=== PATIENT | male | born 1985 | race Caucasian/White ===

== ENCOUNTER 2017-08-06 11:45 | Emergency (ER) | payer OTHER ==
[~2017-08-06] VITALS: Ht 182.9 cm; Wt 77.9 kg
[~2017-08-06 11:45] MED LIST: NAPROSYN500 MG PO; NORCO 5/3251 TABLET PO; PEN-VEE K,VEET500 MG PO; PERCOCET 7.51 TABLET PO; ZOFRAN ODT4 MG PO
[2017-08-06 12:09] LABS: APPEARANCE CLEAR ((CLEAR)); BILIRUBIN NEGATIVE; BLOOD MODERATE; COLOR YELLOW ((YELLOW)); GLUCOSE (STRIP) NEGATIVE; KETONES NEGATIVE; LEUKOCYTES MODERATE; NITRITE NEGATIVE; PROTEIN (STRIP) NEGATIVE; SPECIFIC GRAVITY 1.012 (1.000-1.030); UROBILINOGEN 0.2 MG/DL (0.2-1.0)
[2017-08-06 12:16] LABS: BACTERIA RARE /HPF; EPITHELIAL CELLS NONE SEEN /HPF; MUCUS TRACE /LPF; RED BLOOD CELLS TNTC /HPF (0-5); UCUL ADDED? YES; WHITE BLOOD CELLS 15-20 /HPF (0-5)
[2017-08-06 13:11] LABS: HEMATOCRIT 40.8 % (38.0-50.0); HEMOGLOBIN 14.5 G/DL (12.5-16.6); MCH 31.5 PG (29.0-34.0); MCHC 35.5 G/DL (30.0-36.0); MCV 88.7 FL (86-99); PLATELET COUNT 263 K/uL (156-360)
[2017-08-06 13:19] LABS: CHLORIDE 109 mEq/L (99-109); POTASSIUM 4.3 mEq/L (3.7-5.4); SODIUM 141 mEq/L (136-147)
[2017-08-06 13:21] LABS: GLUCOSE 92 mg/dL (70-99)
[2017-08-06 13:24] LABS: CREATININE 1.4 mg/dL (0.6-1.3); GFR ESTIMATE (CALCULATED) > 59 mL/min/ (58.99-99999)
[2017-08-06 13:25] LABS: UREA NITROGEN (BUN) 15 mg/dL (9-23)
[2017-08-06] MEDS ORDERED: MOTRIN600 MG PO (14:47)
[2017-08-06] MEDS ORDERED: ZOFRAN ODT4 MG PO (14:47)
[2017-08-06] MEDS ORDERED: PERCOCET 5/31 TABLET PO (14:47)
[2017-08-06 14:54] VITALS: BP 139/94
== END 2017-08-06 15:08 | disposition home or self-care (01) ==
LOC: EME 11:45
DX: N20.1 Calculus of ureter (principal); R31.9 Hematuria, unspecified; Z87.442 Personal history of urinary calculi; F17.200 Nicotine dependence, unspecified, uncomplicated
CPT/HCPCS: 74176; 80048; 81003; 85027; 87086; 87186; 99281; 99284; J1885; J2270; J2405; J3010; J7030

== ENCOUNTER 2017-12-13 05:42 | Day surgery (SDC) | payer OTHER ==
[~2017-12-13] VITALS: Ht 182.9 cm; Wt 80.7 kg
[2017-12-13 00:34] VITALS: BP 140/85
[~2017-12-13 05:42] MED LIST changes: +FLOMAX0.4 MG PO; +MACRODANTIN50 M1 PO; +MOTRIN600 MG PO; +PERCOCET 5/31 TABLET PO
[2017-12-13 06:16] VITALS: BP 124/85
[2017-12-13] MEDS ORDERED: BACTRIM,SEPT1 TABLET PO (10:43)
[2017-12-13] MEDS ORDERED: DOCUSATE SODIU100 MG PO (10:43)
[2017-12-13] MEDS ORDERED: TAMSULOSIN HCL0.4 MG PO (10:43)
[2017-12-13] MEDS ORDERED: PHENAZOPYRIDIN100 MG PO (10:43)
[2017-12-13] MEDS ORDERED: HYDROMORPHONE HC2 MG PO (10:43)
[2017-12-13 12:15] VITALS: BP 135/76
[2017-12-13 13:45] LABS: HEMATOCRIT 42.1 % (38.0-50.0); HEMOGLOBIN 14.7 G/DL (12.5-16.6); MCH 31.7 PG (29.0-34.0); MCHC 34.9 G/DL (30.0-36.0); MCV 90.7 FL (86-99); PLATELET COUNT 254 K/uL (156-360); RBC DIS.WIDTH-SD 39.8 % (39-53); RED BLOOD COUNT 4.64 M/uL (4.00-5.50); WHITE BLOOD COUNT 15.8 K/uL (4.1-10.2)
[2017-12-13 14:03] LABS: CHLORIDE 105 MEQ/L (99-109); CREATININE 0.9 MG/DL (0.6-1.3); GFR ESTIMATE (CALCULATED) > 59 mL/min/ (58.99-99999); GLUCOSE 123 mg/dL (70-99); POTASSIUM 4.6 MEQ/L (3.7-5.4); SODIUM 139 MEQ/L (136-147); UREA NITROGEN (BUN) 13 mg/dL (9-23)
[2017-12-13 17:07] VITALS: BP 135/86
[2017-12-13 19:02] VITALS: BP 129/76
[2017-12-14 03:18] VITALS: BP 116/58
[2017-12-14 08:17] VITALS: BP 153/90
[2017-12-14] MEDS ORDERED: ROXICODONE5 MG PO (11:10)
[2017-12-14] MEDS ORDERED: DITROPAN5 MG PO (11:10)
[2017-12-14] MEDS ORDERED: ONDANSETRON ODT4 MG PO (11:10)
== END 2017-12-14 11:51 | disposition home or self-care (01) ==
LOC: SDC 05:42 → 2SOUTH 10:09 → ENRESERV 10:37 → SDC 11:26 → 2EAST 11:55 → SDC 14:33 → 2EAST 12-14 11:51
PROVIDERS: Urology
DX: N20.0 Calculus of kidney (principal); F17.200 Nicotine dependence, unspecified, uncomplicated
CPT/HCPCS: 74018; 80048; 82365 90; 85027; C1726; C1758; C1769; C2625; G0378; J0330; J0696; J1100; J1170; J1885; J2250; J2270; J2405; J2710; J3010; J7120; J7643; S0020

== ENCOUNTER 2017-12-22 21:46 | Emergency (ER) | payer OTHER ==
[~2017-12-22] VITALS: Ht 172.7 cm; Wt 76.1 kg
[~2017-12-22 21:46] MED LIST changes: +BACTRIM,SEPT1 TABLET PO; +DITROPAN5 MG PO; +DOCUSATE SODIU100 MG PO; +HYDROMORPHONE HC2 MG PO; +ONDANSETRON ODT4 MG PO; +PHENAZOPYRIDIN100 MG PO; +ROXICODONE5 MG PO; +TAMSULOSIN HCL0.4 MG PO
[2017-12-22 22:57] LABS: HEMATOCRIT 41.7 % (38.0-50.0); HEMOGLOBIN 14.7 G/DL (12.5-16.6); MCH 32.2 PG (29.0-34.0); MCHC 35.3 G/DL (30.0-36.0); MCV 91.4 FL (86-99); PLATELET COUNT 282 K/uL (156-360); RBC DIS.WIDTH-CV 11.9 % (11.8-14.6); RBC DIS.WIDTH-SD 39.7 % (39-53); RED BLOOD COUNT 4.56 M/uL (4.00-5.50)
[2017-12-22 23:07] LABS: ALBUMIN 4.5 g/dL (3.2-4.8); CHLORIDE 107 mEq/L (99-109)
[2017-12-22 23:08] LABS: POTASSIUM 4.1 mEq/L (3.7-5.4); SODIUM 143 mEq/L (136-147)
[2017-12-22 23:10] LABS: GLUCOSE 119 mg/dL (70-99); TOTAL PROTEIN 7.2 g/dL (6.4-8.3)
[2017-12-22 23:12] LABS: TOTAL BILIRUBIN 0.3 mg/dL (0.0-1.0)
[2017-12-22 23:13] LABS: ALKALINE PHOSPHATASE 86 IU/L (3-129); CREATININE 1.2 mg/dL (0.6-1.3); GFR ESTIMATE (CALCULATED) > 59 mL/min/ (58.99-99999)
[2017-12-22 23:15] LABS: AST (GOT) 18 IU/L (2-34); UREA NITROGEN (BUN) 13 mg/dL (9-23)
[2017-12-22 23:16] LABS: ALT (GPT) 23 IU/L (3-49)
[2017-12-23] MEDS ORDERED: PERCOCET 5/31 TABLET PO (01:05)
[2017-12-23] MEDS ORDERED: MOTRIN600 MG PO (01:05)
[2017-12-23 01:59] LABS: APPEARANCE SL.HAZY ((CLEAR)); BILIRUBIN NEGATIVE; BLOOD LARGE; COLOR AMBER ((YELLOW)); GLUCOSE (STRIP) NEGATIVE; KETONES NEGATIVE; LEUKOCYTES SMALL; NITRITE POSITIVE; PROTEIN (STRIP) 100; SPECIFIC GRAVITY 1.023 (1.000-1.030)
[2017-12-23] MEDS ORDERED: LEVAQUIN750 MG PO (02:12)
[2017-12-23 02:14] LABS: BACTERIA NONE SEEN /HPF; CALCIUM OXALATE CRYSTALS 4+ /HPF; EPITHELIAL CELLS NONE SEEN /HPF; MUCUS TRACE /LPF; RED BLOOD CELLS TNTC /HPF (0-5); UCUL ADDED? YES; WHITE BLOOD CELLS TNTC /HPF (0-5)
[2017-12-23 02:29] VITALS: BP 132/81
== END 2017-12-23 02:31 | disposition home or self-care (01) ==
LOC: EME 21:46
PROVIDERS: Nurse Practitioner Family
DX: N13.2 Hydronephrosis with renal and ureteral calculous obstruction (principal); N39.0 Urinary tract infection, site not specified; Z98.890 Other specified postprocedural states; Z87.442 Personal history of urinary calculi; F17.200 Nicotine dependence, unspecified, uncomplicated
CPT/HCPCS: 74176; 80053; 81003; 85027; 87086; 99281; 99285; J1885; J2405; J3010; J7030

== ENCOUNTER 2018-01-13 01:48 | Observation (INO) | payer OTHER ==
[~2018-01-13] VITALS: Ht 182.9 cm; Wt 77.3 kg
[~2018-01-13 01:48] MED LIST changes: +LEVAQUIN750 MG PO
[2018-01-13 02:16] LABS: HEMATOCRIT 41.7 % (38.0-50.0); HEMOGLOBIN 14.7 G/DL (12.5-16.6); MCH 32.5 PG (29.0-34.0); MCHC 35.3 G/DL (30.0-36.0); MCV 92.1 FL (86-99); PLATELET COUNT 270 K/uL (156-360); RBC DIS.WIDTH-CV 11.9 % (11.8-14.6); RBC DIS.WIDTH-SD 40.3 % (39-53); RED BLOOD COUNT 4.53 M/uL (4.00-5.50); WHITE BLOOD COUNT 9.5 K/uL (4.1-10.2)
[2018-01-13 02:28] LABS: CHLORIDE 105 mEq/L (99-109); POTASSIUM 3.3 mEq/L (3.7-5.4); SODIUM 141 mEq/L (136-147)
[2018-01-13 02:29] LABS: GLUCOSE 151 mg/dL (70-99)
[2018-01-13 02:33] LABS: CREATININE 1.2 mg/dL (0.6-1.3); GFR ESTIMATE (CALCULATED) > 59 mL/min/ (58.99-99999)
[2018-01-13 02:34] LABS: UREA NITROGEN (BUN) 19 mg/dL (9-23)
[2018-01-13 03:55] LABS: APPEARANCE CLEAR ((CLEAR)); BILIRUBIN NEGATIVE; BLOOD LARGE; COLOR YELLOW ((YELLOW)); GLUCOSE (STRIP) NEGATIVE; KETONES NEGATIVE; LEUKOCYTES NEGATIVE; NITRITE NEGATIVE; PROTEIN (STRIP) 30; SPECIFIC GRAVITY 1.021 (1.000-1.030); UROBILINOGEN 0.2 MG/DL (0.2-1.0)
[2018-01-13 04:00] LABS: BACTERIA NONE SEEN /HPF; EPITHELIAL CELLS RARE /HPF; MUCUS TRACE /LPF; RED BLOOD CELLS TNTC /HPF (0-5); UCUL ADDED? YES
[2018-01-13 07:56] VITALS: BP 121/63
[2018-01-13 11:19] VITALS: BP 119/71
[2018-01-13] MEDS ORDERED: PERCOCET 5/31 TABLET PO (14:51)
[2018-01-13] MEDS ORDERED: KEFLEX500 MG PO (15:01)
[2018-01-13 15:45] VITALS: BP 133/77
== END 2018-01-13 16:46 | disposition home or self-care (01) ==
LOC: EME 01:48 → EDOF 06:20 → ENRESERV 07:19 → 4SOUTH 07:52
DX: N13.39 Other hydronephrosis (principal); N20.0 Calculus of kidney; N21.0 Calculus in bladder; R10.31 Right lower quadrant pain; F17.200 Nicotine dependence, unspecified, uncomplicated; F12.90 Cannabis use, unspecified, uncomplicated; Z87.442 Personal history of urinary calculi
CPT/HCPCS: 74176; 80048; 81003; 85027; 87040; 87086; 99281; 99285; G0378; J0696; J1885; J2270; J3010; J7030